=== PATIENT | male | born 1945 | race Hispanic/Latino ===

== ENCOUNTER 2016-09-28 07:05 | Day surgery (SDC) | payer MEDICARE, BC ==
[2016-09-21 13:22] VITALS: BMI 33.6
[2016-09-28] MEDS ORDERED: Propofol 10 mg/ml Inj (20 ML) ONE (09:46)
[2016-09-28] MEDS ORDERED: Succinylcholine 200 mg/10 ml Inj IV ONE (09:46)
[2016-09-28] MEDS ORDERED: Bupivacaine 0.5% Inj(30mL) ONE (09:49)
[2016-09-28] MEDS ORDERED: Etomidate 20 mg/10ml Inj IV ONE (09:49)
[2016-09-28] MEDS ORDERED: Rocuronium 10 mg/ml (5 ml) ONE (10:00)
[2016-09-28] MEDS ORDERED: Desflurane Inhalation Anesthetic Liq (240 ml) ONE (10:15)
[2016-09-28] MEDS ORDERED: Neostigmine Methylsulfate 3mg/3ml Syringe IV ONE (10:17)
[2016-09-28] MEDS ORDERED: ePHEDrine 50 mg/ml Inj ONE (10:28)
[2016-09-28] MEDS ORDERED: Esmolol 100 mg/10ml Inj IV ONE (11:26)
[2016-09-28] MEDS ORDERED: HYDROmorphone 1 mg/ml ISec IVP PRN ×2 (11:57→12:00)
[2016-09-28] MEDS ORDERED: Lactated Ringer's 1,000 ML IV SCH (11:57)
[2016-09-28] MEDS ORDERED: HYDROmorphone 1 mg/ml ISec ONE ×2 (12:02→12:20)
[2016-09-28] MEDS ORDERED: Oxycodone/Acetaminophen 5/325 mg Tab PO PRN (12:08)
--- NOTE | 2016-09-28 12:12 | PCM.SURG1 ---
Surgeon's Initial Post Op Note - Surgeon's Notes Surgeon: Dr. Jiménez Appeals Nurse: Dr. Gonzalez PGY3, Dr. Nunez PGY2, Alyssa Fregoso OMS3 Type of Anesthesia: General Endo Pre-Operative Diagnosis: recurrent incarcerated Left inguinal hernai Operative Findings: see dictation Post-Operative Diagnosis: same Operation Performed: open Left inguinal hernia w/ mesh Specimen/Specimens Removed: hernia sac, cord lipoma Estimated Blood Loss: EBL {In ML}: 5 Post-Op Condition: Good Date of Surgery/Procedure: 09/28/16 Time of Surgery/Procedure: 10:00
[2016-09-28 13:19] VITALS: O2SAT 95
[2016-09-28 13:40] VITALS: BP 141/85; PULSE 105; RESP 18; TEMP 98.1
--- NOTE | 2016-09-28 18:45 | OP ---
PROCEDURE DATE: 09/28/2016 PREOPERATIVE DIAGNOSIS: Recurrent incarcerated right inguinal hernia. POSTOPERATIVE DIAGNOSIS: Recurrent incarcerated right inguinal hernia. PROCEDURE PERFORMED: Repair of the recurrent incarcerated right inguinal hernia with Bard plug. RISK CONSULTANT: Dr. Nunez and Dr. Esparza. ANESTHESIA ADMINISTERED BY: Valerie Montano MD TYPE OF ANESTHESIA: General endotracheal anesthesia. ESTIMATED BLOOD LOSS: Minimal. SPECIMEN: Hernia sac and cord lipoma. INDICATIONS: The patient is a 71-year-old male with the history of recurrent left inguinal hernia associated with tenderness and discomfort and extending all the way down to the scrotum. The patient was scheduled for repair. DESCRIPTION OF PROCEDURE: The patient was brought to the operating room and placed on the operating room table in the supine position. The patient was connected to EKG, blood pressure, and pulse oximetry monitor. The patient then underwent general endotracheal anesthesia and was prepped and draped in the usual sterile fashion. First, a standard time-out was used to place and everybody in the room agreed as to the patient's identity, diagnoses, and procedure to be performed. Using lidocaine mixed with Marcaine, the area of the incision was infiltrated and careful dissection was done through the subcutaneous fascia after the scar tissue of the wound was excised. The dissection was carried down to the area where the hernia sac appeared to be coming out, which was mostly in there at the pubic tubercle. The cord was identified with the structure and carefully elevated with [place] drain and the underlying direct hernia was carefully dissected out from the scrotum and pulled out through the wound. It appeared that the exit side was pretty tight and contained colon. I did use pressure and reduction was done where the colon was returned into abdominal cavity. Now, the hernia sac was ligated out of its base and a Bard plug was placed into the preperitoneal space and sutured to the edges of the transversalis fascia in the inguinal ligament right at the pubic tubercle. Once in place, I then proceeded with further dissection of the left spermatic cord, which appeared *------* without any significant herniation. However, there was fairly large cord lipoma extending from behind the spermatic cord creating quite large opening. At this point, I reduced that fat into the preperitoneal space and proceeded placing the second Bard plug into that area just inferior posterior to the spermatic cord and sutured back as well to the inguinal ligament and transversalis fascia limiting that defect. The midportion of the hernia appeared to have fairly good floor and therefore was not dissected out. especially that this was previously treated and had scar tissue. Now with both plugs in place, the flat portion of the mesh was placed on the floor of the inguinal canal with nazario hole for the exit site of the spermatic cord. That was attached to the underlying tissue with couple of the 3-0 Vicryl stitches. Now the wound was copiously irrigated, all the irrigant fluid was suctioned out. There was excellent hemostasis. The subcutaneous deep tissues were closed using 3-0 Vicryl. The skin was closed using 4-0 Monocryl and sterile Dermabond dressing was applied to the wound. The patient tolerated the procedure well and there were no complications. The patient was awakened and transferred to the recovery room for further observation. Xander Jiménez MD
== END 2016-09-28 16:20 | disposition home or self-care (01) ==
LOC: SDS 07:05
PROVIDERS: ATTEND General Practice
DX: K40.31 Unilateral inguinal hernia, with obstruction, without gangrene, recurrent (principal); I10 Essential (primary) hypertension; I25.10 Atherosclerotic heart disease of native coronary artery without angina pectoris; E11.9 Type 2 diabetes mellitus without complications; E66.9 Obesity, unspecified; Z68.33 Body mass index [BMI] 33.0-33.9, adult
CPT/HCPCS: 49521; 88302; 88304; J0330; J0690; J1170; J1885; J2001; J2405; J2704; J2710; J2765; J3010; J7120 ×2

== ENCOUNTER 2016-11-30 06:16 | Day surgery (SDC) | payer MEDICARE, BC ==
[2016-09-21 13:22] VITALS: BMI 33.6
[2016-11-30 07:07] LABS: INR 1.05 (0.93-1.08); PARTIAL THROMBOPLASTIN TIME 28.2 Seconds (23.7-30.8)
[2016-11-30 07:08] LABS: BASO # 0.02 K/mm3 (0.0-2.0); BASO % 0.3 % (0.0-3.0); EOS # 0.2 (0.0-0.7); EOS % 2.7 % (1.5-5.0); GRAN # 4.04 (1.4-6.5); GRAN % 53.9 % (50.0-68.0); HEMATOCRIT 38.6 % (42.0-52.0); LYMPH # 2.4 (1.2-3.4); MEAN CELL VOLUME 86.5 fl (80.0-105.0); MEAN CORPUSCULAR HEMOGLOBIN 28.3 pg (25.0-35.0); MEAN CORPUSCULAR HGB CONC 32.6 g/dl (31.0-37.0); MEAN PLATELET VOLUME 9.8 fl (7.0-11.0); MONO # 0.8 (0.1-0.6); MONO % 11.1 % (1.0-6.0); RED CELL DISTRIBUTION WIDTH 14.5 % (11.5-14.5); WHITE BLOOD COUNT 7.5 10^3/ul (4.5-11.0)
[2016-11-30 07:12] LABS: BLOOD UREA NITROGEN 17 mg/dL (7-21); CALCIUM 9.3 mg/dL (8.4-10.5); CARBON DIOXIDE 26 mmol/L (21-33); CHLORIDE 107 mmol/L (98-107); GFR AFRICAN-AMERICAN > 60; GLUCOSE,RANDOM 143 mg/dL (70-110); POTASSIUM 4.5 mmol/L (3.6-5.0); SODIUM 142 mmol/L (132-148)
[2016-11-30] MEDS ORDERED: Bupivacaine 0.5% Inj(30mL) ONE (07:39)
[2016-11-30] MEDS ORDERED: Succinylcholine 200 mg/10 ml Inj IV ONE (07:55)
[2016-11-30] MEDS ORDERED: Midazolam 2 MG/2 ML VIAL ONE (07:55)
[2016-11-30] MEDS ORDERED: Rocuronium 10 mg/ml (5 ml) ONE (07:55)
[2016-11-30] MEDS ORDERED: Propofol 10 mg/ml Inj (20 ML) ONE (07:55)
[2016-11-30] MEDS ORDERED: Neostigmine Methylsulfate 3mg/3ml Syringe IV ONE ×2 (08:49→09:12)
[2016-11-30] MEDS ORDERED: Oxycodone/Acetaminophen 5/325 mg Tab PO PRN ×2 (09:16)
[2016-11-30] MEDS ORDERED: HYDROmorphone 0.5 mg/0.5 ml ISec IVP PRN (09:19)
--- NOTE | 2016-11-30 09:19 | PCM.SURG1 ---
Surgeon's Initial Post Op Note - Surgeon's Notes Surgeon: Dr. Jiménez Home Fire Alarm Installer: Dr. Cornell PGY-2 Type of Anesthesia: General Endo Pre-Operative Diagnosis: incarcerated umbilical hernia Operative Findings: see operative report Post-Operative Diagnosis: same Operation Performed: laparoscopic repair of incarcerated umbilical hernia w/ mesh placement Specimen/Specimens Removed: none Estimated Blood Loss: EBL {In ML}: 5 Blood Products Given: N/A Drains Used: No Drains Post-Op Condition: Good Date of Surgery/Procedure: 11/30/16 Time of Surgery/Procedure: 08:00
[2016-11-30] MEDS ORDERED: Lactated Ringer's 1,000 ML IV SCH (09:30)
[2016-11-30 09:36] VITALS: TEMP 97.7
[2016-11-30] MEDS ORDERED: HYDROmorphone 0.5 mg/0.5 ml ISec ONE ×4 (09:36→10:20)
[2016-11-30] MEDS ORDERED: HYDROmorphone 0.5 mg/0.5 ml ISec IVP ONE ×4 (09:38→10:22)
[2016-11-30 11:15] VITALS: PULSE 67
--- NOTE | 2016-11-30 12:10 | RAD ---
HISTORY: PRE-OP COMPARISON: No prior study available comparison FINDINGS: LUNGS: Slightly low lung volumes with mild right basilar atelectasis in part due to slight elevation right hemidiaphragm that could be due to eventration. Questionable minimal left basilar atelectasis. PLEURA: No significant pleural effusion identified, no pneumothorax apparent. CARDIOVASCULAR: Heart size is upper limits with slight left ventricular configuration OSSEOUS STRUCTURES: No significant abnormalities. VISUALIZED UPPER ABDOMEN: Normal. OTHER FINDINGS: None. IMPRESSION: Slightly low lung volumes with mild right basilar atelectasis in part due to slight elevation right hemidiaphragm that could be due to eventration. Questionable minimal left basilar atelectasis.
[2016-11-30 13:50] VITALS: BP 138/70; RESP 18; O2SAT 95
--- NOTE | 2016-11-30 13:52 | OP ---
PROCEDURE DATE: 11/30/2016 PREOPERATIVE DIAGNOSIS: Incarcerated ventral hernia. POSTOPERATIVE DIAGNOSIS: Incarcerated ventral hernia. PROCEDURE PERFORMED: Laparoscopic repair of the incarcerated ventral hernia with mesh. SURGEON: Xander Jiménez MD DISTILLER: Dr. Cornell. ANESTHESIOLOGIST: Joe Vicente MD TYPE OF ANESTHESIA: General endotracheal anesthesia. ESTIMATED BLOOD LOSS: Minimal. SPECIMEN: None. INDICATIONS: The patient is a 71-year-old male with history of a large bulge in the periumbilical hernia area, associated tenderness and discomfort and representing partial incarcerated ventral hernia. The patient was scheduled for repair. DESCRIPTION OF PROCEDURE: The patient was brought to the operating room and placed on the operating room table in the supine position. The patient was connected to EKG, blood pressure, and pulse oximetry monitor. The patient then underwent general endotracheal anesthesia and was prepped and draped in the usual sterile fashion. First, a standard time-out procedure took place and everybody in the room agreed as to the patient's identity, diagnoses, and procedure to be performed. Using lidocaine mixed with Marcaine, the area of the left subcostal margin was infiltrated and 12-mm incision was made and noted to the accommodate 12-mm trocar. Next, under direct visualization with the Visiport, access to the abdominal cavity was obtained and pneumoperitoneum was instituted. Careful evaluation of abdominal cavity revealed a presence of omentum stuck in the hernia defect. A second 5-mm trocar was inserted in the anterior axillary line on the last lower abdomen and careful cautery was used in order to detach the omentum from the anterior abdominal wall and released it from the hernia. Once, this was completely done, the hernia sac was then careful cauterized in several areas. The hemostasis is perfect and there was no bleeding noted. Then, carefully evaluated the abdominal cavity. There was no abnormalities noted on the liver or physical portion of the bowel. The port sides were also clean and not drooping any blood. I then placed 9-cm round Symbotex mesh inside the abdominal cavity, we have attached 3-0-Vicryl. The closure needle was used in order to grab the stitch to the center of the patch and bring it up against anterior abdominal wall with the left side against abdominal wall and the soft covered site towards the bowel. Once, placed against the abdominal wall, a dissolvable tacks were used in order to fix the mesh to the abdominal wall in two rows of tacks. This completed the repair. The pneumoperitoneum was now released. Trocars were removed and the wounds closed using 0 Vicryl for fascia, 3-0 Vicryl for subcutaneous tissue, and 4-0 Monocryl for skin. A sterile Dermabond dressing was applied to the wound. The patient tolerated the procedure well and there were no complications. The patient was awakened and transferred to the recovery room for further observation. Xander Jiménez MD
== END 2016-11-30 13:46 | disposition home or self-care (01) ==
LOC: SDS 06:16
PROVIDERS: ATTEND General Practice
DX: K43.6 Other and unspecified ventral hernia with obstruction, without gangrene (principal); I10 Essential (primary) hypertension; I25.10 Atherosclerotic heart disease of native coronary artery without angina pectoris; J40 Bronchitis, not specified as acute or chronic; E11.9 Type 2 diabetes mellitus without complications; E66.9 Obesity, unspecified; Z68.33 Body mass index [BMI] 33.0-33.9, adult
CPT/HCPCS: 36415; 49653; 71010; 80048; 85025; 85610; 85730; C1781; J0330; J0690; J1170; J2250; J2405; J2704; J2710; J3010; J7120 ×2

== ENCOUNTER 2016-12-04 23:07 | Emergency (ER) | payer MEDICARE, BC ==
[2016-12-04 23:07] VITALS: BMI 33.6
[2016-12-04 23:12] VITALS: BP 163/78; PULSE 71; RESP 16; TEMP 98.1; O2SAT 96
--- NOTE | 2016-12-05 00:04 | ED PDOC ---
Arrival/HPI - General Chief Complaint: Wound Check Time Seen by Provider: 12/04/16 23:45 Historian: Patient, Family (cristoalize) - History of Present Illness Narrative History of Present Illness (Text): 12/05/16 00:01 This 71 yo female presents to this ED c/o surgical wound rash x 2 days. Patient stated he had a incarcerated hernia repaired x 4 days. Patient stated he did not change wound dressing since surgery. Patient denies fever, cellulitis, sob, cp, abdominal pain, n/v, rectal bleeding or urinary symptoms. Time/Duration: Other (see hpi) Context: Home Past Medical History - Provider Review Nursing Documentation Reviewed: Yes - Cardiac Hx Pacemaker: No - Pulmonary Hx Respiratory Disorders: Yes Hx Sleep Apnea: Yes - Neurological Hx Paralysis: No - HEENT Hx HEENT Disorder: No - Renal Hx Renal Disorder: No - Endocrine/Metabolic Hx Endocrine Disorders: Yes Hx Diabetes Mellitus Type 2: Yes - Hematological/Oncological Hx Blood Transfusions: No - Integumentary Hx Dermatological Disorder: No - Musculoskeletal/Rheumatological Hx Musculoskeletal Disorders: No - Gastrointestinal Hx Gastrointestinal Disorders: No - Genitourinary/Gynecological Hx Genitourinary Disorders: No - Psychiatric Hx Emotional Abuse: No Hx Physical Abuse: No Hx Substance Use: No - Surgical History Hx Tonsillectomy: Yes Other/Comment: RT KNEE AND RHINOPLASTY - Anesthesia Hx Anesthesia Reactions: No Hx Malignant Hyperthermia: No - Suicidal Assessment Feels Threatened In Home Enviroment: No Family/Social History - Physician Review Nursing Documentation Reviewed: Yes Family/Social History: Other (non-contributory) Smoking Status: Never Smoked Hx Alcohol Use: Yes (RARE) Hx Substance Use: No Allergies/Home Meds Allergies/Adverse Reactions: Allergies No Known Allergies Allergy (Verified 12/04/16 23:12) Home Medications: Home Meds Medication Instructions Recorded Confirmed Amlodipine/Valsartan [Amlodipine 1 tab PO DAILY 08/13/15 12/04/16 Besylate-Valsartan 10 mg-320 mg] Carvedilol Phosphate [Coreg Cr] 20 mg PO DAILY 08/13/15 12/04/16 Doxazosin [Cardura] 4 mg PO DAILY 08/13/15 12/04/16 Ezetimibe/Simvastatin [Vytorin 10 1 tab PO DAILY 08/13/15 12/04/16 mg-40 mg] Glimepiride [amaRYL] 2 mg PO BID 08/13/15 12/04/16 Sitagliptin Phos/Metformin HCl 1 tab PO BID 08/13/15 12/04/16 [Janumet 50-1,000 mg Tablet] Spironolactone [Aldactone] 25 mg PO MWF 08/13/15 12/04/16 Chlorthalidone [Hygroton] 12.5 mg PO Q4XW 09/21/16 12/04/16 Multivitamin/Iron/Folic Acid 1 tab PO DAILY 09/21/16 12/04/16 [Centrum] Donnelly-3 Fatty Acids/Fish Oil [Fish 1,000 mg PO BID 09/21/16 12/04/16 Oil 1,000 mg Capsule] traMADol [Ultram] 1 tab PO Q6 PRN 11/30/16 12/04/16 Review of Systems - Review of Systems Constitutional: Normal. absent: Fatigue, Weight Change, Fevers Eyes: Normal ENT: Normal. absent: Sore Throat Respiratory: Normal. absent: SOB, Cough, Sputum, Wheezing Cardiovascular: Normal. absent: Chest Pain, Palpitations Gastrointestinal: Normal. absent: Abdominal Pain, Nausea, Vomiting Genitourinary Male: Normal Musculoskeletal: Normal Skin: Rash, Pruritis. absent: Skin Lesions, Laceration, Abscess, Ulcer, Cellulitis Neurological: Normal Endocrine: Normal Hemo/Lymphatic: Normal Psychiatric: Normal Physical Exam Vital Signs Temp Pulse Resp BP Pulse Ox 12/04/16 23:12 98.1 F 71 16 163/78 H 96 Temperature: Afebrile Blood Pressure: Normal Pulse: Regular Respiratory Rate: Normal Appearance: Positive for: Well-Appearing, Non-Toxic, Comfortable Pain Distress: None Mental Status: Positive for: Alert and Oriented X 3 - Systems Exam Head: Present: Atraumatic, Normocephalic Pupils: Present: PERRL Extroacular Muscles: Present: EOMI Conjunctiva: Present: Normal Mouth: Present: Moist Mucous Membranes Neck: Present: Normal Range of Motion Respiratory/Chest: Present: Clear to Auscultation, Good Air Exchange. No: Respiratory Distress, Accessory Muscle Use Cardiovascular: Present: Regular Rate and Rhythm, Normal S1, S2. No: Murmurs Abdomen: Present: Normal Bowel Sounds, Other (There is a rash over wound dressing tape area. No cellulitis or abscess. No purulent material. Rash appears a contact dermatitis due to tape glue. ). No: Tenderness, Distention, Peritoneal Signs, Rebound, Guarding Back: Present: Normal Inspection Upper Extremity: Present: Normal Inspection. No: Cyanosis, Edema Lower Extremity: Present: Normal Inspection. No: Edema Neurological: Present: GCS=15, CN II-XII Intact, Speech Normal Skin: Present: Warm, Dry, Normal Color. No: Rashes Psychiatric: Present: Alert, Oriented x 3, Normal Insight, Normal Concentration Medical Decision Making ED Course and Treatment: 12/05/16 00:07 Patient came c/o rash, pruritic over the area of wound dressing tape. No cellulitis or abscess.. Wound dressing was removed. Abdomen is soft, nt/nd. Patient was recommended to clean wound with soap and water daily, to apply OTC Neosporin, to f/u surgeon tomorrow or Wednesday. To return to emergency if cellulitis develop or worsen symptoms. Re-evaluation Time: 00:09 Reassessment Condition: Re-examined, Improved - Procedure PROCEDURE NOTE (Text): 12/05/16 00:09 Wound dressing changed by ER nurse Disposition/Present on Arrival - Present on Arrival Any Indicators Present on Arrival: No History of DVT/PE: No History of Uncontrolled Diabetes: No Urinary Catheter: No History of Decub. Ulcer: No History Surgical Site Infection Following: None - Disposition Have Diagnosis and Disposition been Completed?: Yes Diagnosis: Contact dermatitis Disposition: HOME/ ROUTINE Disposition Time: 00:12 Patient Plan: Discharge Patient Problems: Current Active Problems Problem Status Onset Contact dermatitis Acute Condition: GOOD Discharge Instructions (ExitCare): Contact Dermatitis (ED) Additional Instructions: Call private surgeon office for follow up visit in 1-3 days. Clean wound with soap and water and apply over the counter Neosporin ointment. Apply a nonstick gauze, and use paper tape. place a small gauze, folded within umbilicus as done by surgeon, and change dressing daily. Return to emergency for any sign of skin infection Referrals: Xander Jiménez MD [Staff Provider] - Follow up with primary Forms: [employer] (Faroese)
== END 2016-12-05 00:44 | disposition home or self-care (01) ==
LOC: ED 23:07
DX: L25.9 Unspecified contact dermatitis, unspecified cause (principal); E11.9 Type 2 diabetes mellitus without complications